=== PATIENT | female | born 1995 | race Hispanic/Latino ===

== ENCOUNTER 2016-12-30 23:09 | Observation (INO) | payer OTHER ==
[~2016-12-30] VITALS: Ht 152.4 cm; Wt 58.8 kg
[~2016-12-30 23:09] MED LIST: ULTRAM50 M1 PO
--- NOTE | 2016-12-30 23:10 | NUR ---
IMMEDIATELY TO ROOM 10
--- NOTE | 2016-12-30 23:30 | NUR ---
BREATHING TREATMENT GIVEN FOR WHEEZES AND SOB. PATIENT WAS INSTRUCTED ABOUT THE PROCESS OF DEEP BREATHING FOR GOOD DEPOSITION TO THE LUNGS.
[2016-12-30] MEDS ORDERED: DUONEB IN (23:39)
--- NOTE | 2016-12-30 23:44 | NUR ---
TOLERATED NEB TREATMENTS WELL. BREATHING EASED. STATES SHE FEELS LIKE SHE IS BREATHING BETTER. LUNGS NOT TIGHT. BILATERAL WHEEZING NOTED
[2016-12-30 23:55] LABS: HEMATOCRIT 30.8 % (37.0-47.0); HEMOGLOBIN 8.5 g/dl (12.0-16.0); IMMATURE GRANULOCYTES 0.5 % (0.0-1.0); MEAN CELL VOLUME 67.1 fL CALC (80.0-100.0); MEAN CORPUSCULAR HGB 18.5 pG CALC (26.0-32.0); MEAN CORPUSCULAR HGB CONC 27.6 g/L CALC (32.0-36.0); NEUT# 4.9 thou/uL (2.00-7.15); RED BLOOD COUNT 4.59 mill/uL (4.20-5.60); RED CELL DISTRI WIDTH 18.5 % (11.5-15.5)
[2016-12-31 00:06] LABS: INFLUENZA A NONE DETECTED (NONE DETECT); INFLUENZA B NONE DETECTED (NONE DETECT)
[2016-12-31 00:10] LABS: ALBUMIN 4.4 g/dL (3.2-5.0); ALKALINE PHOSPHATASE 87 u/l (38-126); ANION GAP 17 (6-22 (CALC)); BILIRUBIN, TOTAL 0.3 mg/dL (0.0-1.4); BUN 8 mg/dL (7-17); BUN/CREATININE RATIO 14 (12-20 (CALC)); CALCIUM 9.4 mg/dL (8.4-10.2); CARBON DIOXIDE 26 mmol/l (22-30); CHLORIDE 102 mmol/l (95-108); CREATININE 0.6 mg/dL (0.5-1.0); GFR > 60 ML/MIN (>=60 (CALC)); GFR FOR AFR.AMER. > 60 ML/MIN (>=60 (CALC)); GLUCOSE 104 mg/dL (65-105); POTASSIUM 3.2 mmol/l (3.5-5.1); SGOT/AST 49 u/l (14-36); SGPT/ALT 61 u/l (9-52); SODIUM 142 mmol/l (137-146); TOTAL PROTEIN 7.8 g/dL (6.3-8.2)
--- NOTE | 2016-12-31 00:35 | NUR ---
PT CONTINUES RESTING IN BED. RESP EVEN AND UNLABORED. NO ACUTE DISTRESS NOTED. PT A&O X 3. SKIN W/D. VSS. INFORMED PT AND MOTHER AGAIN OF PLAN OF CARE AND CONTINUED WAIT TIME AND THEY VERBALIZED UNDERSTANDING. CALL LIGHT IN REACH.
[2016-12-31 00:53] LABS: PROTHROMBIN TIME 10.4 SECONDS (9.0-12.5)
[2016-12-31 00:57] LABS: MYOGLOBIN 18 ng/mL (0 - 62)
[2016-12-31 01:08] LABS: MAGNESIUM 1.8 mg/dL (1.6-2.3)
--- NOTE | 2016-12-31 01:29 | NUR ---
PT CONTINUES RESTING IN BED W/ NO CHANGE IN ASSESSMENT.
--- NOTE | 2016-12-31 02:00 | NUR ---
REPORT CALLED TO Shayan HAYES LPN [facility]
[2016-12-31 02:10] VITALS: BP 124/71
--- NOTE | 2016-12-31 02:10 | NUR ---
Admission Note Report Given to: Shayan HAYES LPN Transported by: Wheelchair X Stretcher Transported with: X Nurse Transporter X Patent IV X O2 X Hide Curer
--- NOTE | 2016-12-31 02:10 | NUR ---
PT ARRIVED TO FLOOR IN STABLE CONDITION VIA STRETCHER ACCOMPANIED BY HUMBLE BERNAL;PT AMBULATED WITH A STEADY GAIT TO STANDING SCALE AND BED;VS OBTAINED;PT ORIENTED TO ROOM AND CALL LIGHT SYSTEM AND VERBALIZES UNDERSTANDING;TELE MONITOR IN PLACE WITH AN INITIAL READING OF [facility] PER ER MONITORING;IV SITE TO LAC FLUSHED AND FLUIDS STARTED AT THIS TIME;02 ON @ 2 LITERS VIA NC AND PURSED LIP BREATHING TECHNIQUE EDUCATED;PT REPORTS LAST BM TO BE 12/30;ASSESSMENT COMPLETED;SKIN INTACT;PT REPORTS SOB HAS BEEN GOING OF FOR X2 DAYS AND THAT TREATMENTS PROVIDED IN THE ER HAVE HELPED;PT RESPIRATIONS EVEN AND UNLABORED AT THIS TIME;PT DENIES ANY PAIN OR DISCOMFORTS;PT TOLD TO CALL FOR ASSISTANCE IF NEEDED;SAFETY PRECAUTIONS REINFORCED;BED IN LOWEST POSITION WITH CALL LIGHT IN REACH;WILL CONTINUE TO MONITOR
--- NOTE | 2016-12-31 05:20 | NUR ---
PT RESTING IN SEMI FOWLERS POSITION;RESPIRATIONS EVEN AND UNLABORED ON 02 @ 2 LITERS VIA NC;PT DENIES ANY PAIN OR DISCOMFORTS;SCHEDULED MEDICATION ADMINISTERED;PT DENIES ANY OTHER NEEDS AT THIS TIME;BED IN LOWEST POSITION WITH CALL LIGHT IN REACH;WILL CONTINUE TO MONITOR
--- NOTE | 2016-12-31 08:00 | NUR ---
PT AMBULATORY IN ROOM; DENIES PAIN; CALL [place] WITHIN REACH; WILL CONTINUE TO MONITOR.
[2016-12-31 09:39] VITALS: BP 112/53
--- NOTE | 2016-12-31 10:00 | NUR ---
DR. ROSSI IN TO SEE PT; PLAN OF CARE DISCUSSED
[2016-12-31] MEDS ORDERED: PREDNISONE10 MG PO (11:14)
[2016-12-31] MEDS ORDERED: FERROUS SULF325 M2 PO (11:18)
--- NOTE | 2016-12-31 12:39 | NUR ---
Discharge instructions given. Patient verbalizes understanding of same. Discharged in stable condition via Ambulatory to Home with family. All belongings sent with pt.
== END 2016-12-31 12:36 | disposition home or self-care (01) | DRG 203 ==
LOC: ENPENDDIS → ED 23:09 → MS2 12-31 00:59
PROVIDERS: Emergency Medicine; ADMIT Internal Medicine; ATTEND Internal Medicine
DX: J45.901 Unspecified asthma with (acute) exacerbation (principal); D50.9 Iron deficiency anemia, unspecified
CPT/HCPCS: G0378; J1650; J1756

== ENCOUNTER 2018-08-31 13:30 | Emergency (ER) | payer OTHER ==
[~2018-08-31] VITALS: Ht 152.4 cm; Wt 60.0 kg
[~2018-08-31 13:30] MED LIST changes: +DUONEB IN; +FERROUS SULF325 M2 PO; +PREDNISONE10 MG PO
[2018-08-31] MEDS ORDERED: CALNA PO (13:50)
[2018-08-31 14:30] VITALS: BP 103/65
== END 2018-08-31 14:30 | disposition home or self-care (01) | DRG 605 ==
LOC: ED 13:30
DX: S40.812A Abrasion of left upper arm, initial encounter (principal); Z33.1 Pregnant state, incidental; Z3A.32 32 weeks gestation of pregnancy; V43.52XA Car driver injured in collision with other type car in traffic accident, initial encounter; Y92.410 Unspecified street and highway as the place of occurrence of the external cause